=== PATIENT | female | born 1970 | race Caucasian/White ===

== ENCOUNTER 2016-10-05 09:11 | Day surgery (SDC) | payer MEDICAID ==
[~2016-10-05 09:11] MED LIST: Bupivacaine 0.5% 50 ML MDV ONE; Lidocaine 1% with EPINEPHrine 1:100,000 50 ML MDV ONE
[2016-10-05] MEDS ORDERED: Propofol 200 MG/20 ML SDV ONE ×3 (09:15→11:10)
[2016-10-05] MEDS ORDERED: Midazolam 1 MG/ML 2 ML SDV ONE (09:15)
[2016-10-05] MEDS ORDERED: fentaNYL 100 MCG/2 ML SDV ONE (09:15)
[2016-10-05] MEDS ORDERED: Lactated Ringers 1,000 ML IV SCH (10:30)
[2016-10-05] MEDS ORDERED: Acetaminophen/HYDROcodone 325-5 MG Tab PO ONE (12:00)
[2016-10-05 12:45] VITALS: BP 105/66
--- NOTE | 2016-10-08 08:35 | OR ---
DATE OF PROCEDURE: 10/05/2016 PREOPERATIVE DIAGNOSES: Family history of colon cancer of both paternal grandparents. Small external hemorrhoid. Small lesion, left buttock. POSTOPERATIVE DIAGNOSES: Three colon polyps. Small external hemorrhoids. Small lesion, left buttock, consistent with epidermal inclusion cyst. Inflamed ileocecal valve. PROCEDURE: Colonoscopy to the cecum with biopsy resection of 3 colon polyps, 2 at 25 cm were sent to the laboratory as one specimen, biopsy of ileocecal valve. ANESTHESIA: IV anesthesia with monitored anesthesia care. INDICATIONS: This 46-year-old white female is referred for a colonoscopy because of a family history of colon cancer. She says both her paternal grandparents had colon cancer. She says her last colonoscopic exam was done about ten years ago. Additionally, she has a small hemorrhoid which is external and she would like to have this excised as well as a skin lesion in the left buttock which is just outside the anal area. She also has a personal history of clear cell renal cell carcinoma having undergone a nephrectomy on the right side. I counseled her for a colonoscopy with possible biopsy and/or polypectomy as well as excision of her external hemorrhoid and the skin lesion on the left buttock including risks and alternatives and she gave her informed consent to proceed. PROCEDURE IN DETAIL: The patient was placed in the left lateral decubitus position. IV anesthesia was administered by the Anesthesia Service. Time-out was held. A rectal exam was performed, which was unremarkable other than the small external hemorrhoid and the skin lesion in the left buttock adjacent to the anus. The flexible video Olympus colonoscope was introduced through her anus, up her rectum, and out her colon all way to the cecum. En route, at 15 cm from the anal verge, we encountered a polyp which was fairly small and was removed with the biopsy forceps. Once the cecum was reached, the scope was slowly withdrawn examining the mucosa throughout. The ileocecal valve appeared inflamed. We obtained biopsies of this. The scope was then withdrawn with no other lesions noted until we reached 25 cm from anal verge. Here, we saw two small polyps adjacent to each other which were removed with the biopsy forceps and since they were adjacent to each other, they were sent to the laboratory as one specimen. The scope was brought back into the rectum, where it was retroflexed, the distal rectum appeared unremarkable. The scope was straightened and removed. She tolerated this portion of the procedure well. She was then placed in the jackknife position. Perianal and buttock areas were prepped and draped in the usual sterile fashion. Lidocaine 1% with epinephrine in a 50:50 mix with 0.5% Marcaine was infiltrated about the 5 mm skin lesion adjacent to the anus on the left and the small external hemorrhoid. The skin lesion was then excised using a radial elliptical incision and was found to be consistent with an epidermal inclusion cyst. It was sent to pathology. The incision was closed with a running stitch of 3-0 chromic. Next, the small hemorrhoid was grasped and elevated. It was excised with electrocautery and sent to the laboratory. Now, all looked well. Sterile dressing was applied. The patient was placed in supine and brought from the operating room in good condition having tolerated the procedure well. Erick Delgadillo MD /[id number] [id number]
== END 2016-10-05 13:15 | disposition home or self-care (01) ==
LOC: JP.SDS 09:11
PROVIDERS: ATTEND Surgery
PROC: 0DBE8ZX Excision of Large Intestine, Via Natural or Artificial Opening Endoscopic, Diagnostic (ICD-10-PCS; principal; 2016-10-05)
PROC: 0HB8XZZ Excision of Buttock Skin, External Approach (ICD-10-PCS; 2016-10-05)
PROC: 06BY3ZC Excision of Hemorrhoidal Plexus, Percutaneous Approach (ICD-10-PCS; 2016-10-05)
DX: Z12.11 Encounter for screening for malignant neoplasm of colon (principal); D12.6 Benign neoplasm of colon, unspecified; K63.5 Polyp of colon; L72.0 Epidermal cyst; D23.5 Other benign neoplasm of skin of trunk; Z88.0 Allergy status to penicillin
CPT/HCPCS: 11400; 45380; 46999; A9270; J2250; J2704; J3010; J7120; 88304; 88305

== ENCOUNTER 2017-01-18 06:03 | Inpatient (IN) | payer MEDICAID ==
[2017-01-18] MEDS ORDERED: Dextrose 5%-Lactated Ringers 1,000 ML IV SCH (06:30)
[2017-01-18] MEDS: fentaNYL 25 MCG/HR Transdermal Patch TRDERM SCH (06:47)
[2017-01-18] MEDS ORDERED: cefOXitin 2 GM Vial ONE (06:58)
[2017-01-18] MEDS ORDERED: Bupivacaine 0.5%/EPINEPHrine 1:200,000 50 ML MDV ONE (06:58)
[2017-01-18] MEDS ORDERED: Propofol 200 MG/20 ML SDV ONE (07:15)
[2017-01-18] MEDS ORDERED: Dexamethasone 4 MG/ML SDV ONE (07:15)
[2017-01-18] MEDS ORDERED: fentaNYL 250 MCG/5 ML SDV ONE ×2 (07:15→08:28)
[2017-01-18] MEDS ORDERED: Neostigmine Methylsulfate 1 MG/ML 5 ML Syringe ONE (07:15)
[2017-01-18] MEDS ORDERED: Succinylcholine/Normal Saline 200 MG/10 ML Syringe ONE (07:15)
[2017-01-18] MEDS ORDERED: Rocuronium 50 MG/5 ML Vial ONE (07:15)
[2017-01-18] MEDS ORDERED: Ondansetron 4 MG/2 ML SDV ONE (07:15)
[2017-01-18] MEDS ORDERED: Meropenem 500 MG SDV ONE (07:33)
[2017-01-18] MEDS ORDERED: Naloxone 0.4 MG/ML SDV IVPUSH PRN (07:37)
[2017-01-18] MEDS ORDERED: Scopolamine 1.5 MG Transdermal Patch TRDERM PRN (07:42)
[2017-01-18] MEDS ORDERED: ceFAZolin 2 GM in Premix Bag 1 BAG IV ONE (07:45)
[2017-01-18] MEDS: HYDROmorphone/Normal Saline 15 MG/30 ML PCA IV PRN (07:46)
[2017-01-18] MEDS ORDERED: Linezolid 200 MG/100 ML Bag IV ONE (08:41)
[2017-01-18] MEDS ORDERED: FENTANYL PATCH CHECK TOP SCH (09:00)
[2017-01-18] MEDS ORDERED: Lactated Ringers 1,000 ML ONE (09:30)
[2017-01-18] MEDS ORDERED: Ondansetron 4 MG/2 ML SDV IVPUSH PRN (11:46)
[2017-01-18] MEDS ORDERED: hydrOXYzine HCl 25 MG Tab PO PRN (11:47)
[2017-01-18] MEDS ORDERED: Cyclobenzaprine 10 MG Tab PO PRN (11:47)
[2017-01-18] MEDS ORDERED: hydrOXYzine HCl 50 MG/ML SDV IM PRN (11:48)
[2017-01-18] MEDS: FENTANYL PATCH CHECK TOP SCH ×2 (13:16→21:12)
[2017-01-18] MEDS: Dextrose 5%-Lactated Ringers 1,000 ML IV SCH ×2 (13:21→20:26)
[2017-01-18] MEDS: ClonazePAM 1 MG Tab PO PRN (14:13)
[2017-01-18] MEDS: ceFAZolin 2 GM in Sodium Chloride 0.9% 50 ML IV SCH ×2 (14:14→21:11)
[2017-01-18] MEDS: FLUoxetine 10 MG Cap PO SCH (14:31)
[2017-01-18] MEDS: Fluticasone Propionate Nasal Spray 16 GM Bottle NASBOTH SCH (21:11)
[2017-01-19] MEDS: HYDROmorphone/Normal Saline 15 MG/30 ML PCA IV PRN (00:50)
[2017-01-19] MEDS: ClonazePAM 1 MG Tab PO PRN ×2 (01:03→20:09)
[2017-01-19] MEDS: Dextrose 5%-Lactated Ringers 1,000 ML IV SCH ×2 (03:40→16:33)
[2017-01-19] MEDS: ceFAZolin 2 GM in Sodium Chloride 0.9% 50 ML IV SCH (05:14)
[2017-01-19] MEDS: FENTANYL PATCH CHECK TOP SCH ×2 (08:16→21:03)
[2017-01-19] MEDS: Fluticasone Propionate Nasal Spray 16 GM Bottle NASBOTH SCH ×3 (08:16→21:03)
[2017-01-19] MEDS: FLUoxetine 10 MG Cap PO SCH (08:17)
[2017-01-19] MEDS: Bisacodyl 5 MG Tab PO SCH ×2 (10:39→21:02)
[2017-01-19] MEDS: Docusate Sodium 100 MG Cap PO SCH ×2 (10:39→21:02)
[2017-01-19] MEDS ORDERED: Tamsulosin 0.4 MG Cap.ER PO ONE (14:45)
[2017-01-19] MEDS: Acetaminophen/oxyCODONE 325-5 MG Tab PO PRN ×2 (15:33→20:08)
[2017-01-19] MEDS: Tamsulosin 0.4 MG Cap.ER PO SCH (21:02)
[2017-01-20] MEDS: Acetaminophen/oxyCODONE 325-5 MG Tab PO PRN ×3 (00:07→10:01)
[2017-01-20] MEDS: ClonazePAM 1 MG Tab PO PRN (00:19)
[2017-01-20] MEDS: Dextrose 5%-Lactated Ringers 1,000 ML IV SCH (02:38)
[2017-01-20 07:14] VITALS: BP 92/55
[2017-01-20] MEDS: FLUoxetine 10 MG Cap PO SCH (08:01)
[2017-01-20] MEDS: Tamsulosin 0.4 MG Cap.ER PO SCH (08:01)
[2017-01-20] MEDS: Docusate Sodium 100 MG Cap PO SCH (08:02)
[2017-01-20] MEDS: Bisacodyl 5 MG Tab PO SCH (08:02)
[2017-01-20] MEDS: Fluticasone Propionate Nasal Spray 16 GM Bottle NASBOTH SCH (08:02)
[2017-01-20] MEDS: FENTANYL PATCH CHECK TOP SCH (08:03)
[2017-01-20] MEDS: fentaNYL 25 MCG/HR Transdermal Patch TRDERM SCH (09:51)
--- NOTE | 2017-01-21 11:31 | DISCH ---
ADMISSION DIAGNOSES: 1. Incarcerated umbilical and incisional hernias. 2. Depression disorder. 3. Anxiety disorder. DISCHARGE DIAGNOSES: Laparoscopic repair of incarcerated umbilical hernia and incarcerated incisional hernia. DATE OF SURGERY: 01/18/2017. HISTORY: Delmi Mo is a 46-year-old female with incarcerated umbilical and incarcerated incisional hernias. After preoperative evaluation and discussion of possible risks and possible complications, she wished to proceed with surgical procedure. HOSPITAL COURSE: Delmi had her surgery on 01/18/2017. She had no operative complications. On postoperative day 1, she was advanced to a diet, and her activity was good. On postoperative day 2, she was changed to oral pain medication. Her diet was advanced. She did have difficulty with urinating with a residual of 800/800 in her bladder, and her Louis was re-inserted and started on Flomax. Louis catheter was taken out on day of discharge. She urinated. Pain was controlled. Activity was good. Vital signs were stable. She was able to be discharged to home. PHYSICAL EXAMINATION: GENERAL: Delmi mo is a pleasant 46-year-old female. VITAL SIGNS: Height is 5 feet 3 inches and weight is 110 pounds. TPR is 97.5, 92, and 18. Blood pressure is 92/55. HEENT: Negative. NECK: Supple. HEART: Regular rate and rhythm. LUNGS: Clear. ABDOMEN: Incisions look good. Abdominal binder is on. EXTREMITIES: Without peripheral edema. DISPOSITION: Discharged to home. CONDITION: Stable and improving. FOLLOWUP APPOINTMENT: With Isabel Perea PA-C, on 01/30/2017 at 9 a.m. HOME MEDICATIONS: 1. Percocet 5/325 mg one to two every 4 hours p.r.n. pain. 2. Colace 100 mg oral twice daily, #100. 3. Milk of magnesia 30 mL, two were sent home with patient to take one today and repeat in a.m. 4. Flomax 0.4 mg oral daily, #30. 5. Fentanyl patch was replaced. She is to take today and she is to take it off on , 01/24/2017. DISCHARGE MEDICATIONS: To resume home medications of 1. Prozac. 2. Fluoxetine 10 mg daily. 3. Flonase 1 spray in each nostril twice daily. 4. Multivitamin one tablet oral daily. 5. Clonazepam 1 mg oral twice daily p.r.n. anxiety. DIET AFTER DISCHARGE: Usual diet as tolerated. Drink 8 to 10 glasses a day. ACTIVITY: After discharge, no lifting greater than 10 pounds for six weeks. Other activity, walk 8 times daily, distance and time as tolerated. DISCHARGE INSTRUCTIONS: Driving after discharge, do not drive on pain medication. She may shower. Notify provider if any fever, increased pain, nausea, or vomiting. Wound incision care, keep site clean and dry. Wear abdominal binder with rolled up Kerlix or washcloth over the hernia site for six weeks. Use incentive spirometer 10 times every hour while awake for two weeks.
--- NOTE | 2017-01-21 11:40 | PN ---
DATE OF SERVICE: 01/19/2017 The patient has been afebrile with stable vital signs. Pain control appears to be satisfactory. We will switch over to oral pain medication today and then go up to a regular diet. We will start some Colace and Dulcolax oral tablets scheduled today to augment bowel activity. She probably will be ready for discharge home tomorrow. She's somebody who should keep pressure over the hernia site, which includes the umbilicus, and essentially the entire upper midline incision with an amount of gauze or washcloth and binder for at least 3 weeks postoperatively. Andriy Santiago MD /[id number]
--- NOTE | 2017-01-23 14:32 | OR ---
DATE OF PROCEDURE: 01/18/2017 PREOPERATIVE DIAGNOSIS: Umbilical hernia. POSTOPERATIVE DIAGNOSES: 1. Incarcerated umbilical hernia. 2. Incarcerated incisional hernia. OPERATIVE PROCEDURES: Diagnostic laparoscopy with: 1. Repair of incarcerated umbilical hernia with mesh ([id number]). 2. Repair of incarcerated incisional hernia with mesh ([id number]). ANESTHESIA: General. JOB CHECKER: 1. Isabel Perea PA-C. 2. JESUS Langley student. INDICATION FOR PROCEDURE: A 46-year-old status post an upper midline incision used for radical nephrectomy presenting with hernias involving the umbilical area. There is also some probable component of an incisional hernia extending superiorly. Plan is to proceed with diagnostic laparoscopy, laparotomy if necessary, and repair of the hernia with mesh. Potential risk including bleeding, infection, injury to the underlying viscera as well as possibility of mesh becoming infected, hernia recurring, and lastly possibility of cardiopulmonary, septic, or hemorrhagic complications leading to were discussed, and the patient wishes to proceed. DETAILS OF THE PROCEDURE: The patient was taken to the operating room and after general endotracheal anesthesia was induced, a Louis catheter was inserted and the abdomen was prepped and draped. Beginning on the right side, a transverse incision was made and the peritoneal cavity was entered under a direct vision with an Optiview trocar and inflated 15 mmHg pressure with CO2. Laparoscope was then reinserted. There was no evidence for adhesions in this area. At that point, next, a trocar was then placed. This also with the Optiview trocar in the left lower quadrant. This was entered in the peritoneal cavity in a free plane and at that point, over time additional 5 more trocars were then placed. The adhesions were then taken down. The patient was noted to have a significant component of the umbilical hernia with adherent omentum within it highly incarcerated. The patient had also had an incisional hernia which extended roughly 2/3rd from the umbilicus to the midline toward the xiphoid. This likewise had incarcerated omentum as well as loop of small bowel within it. These were all reduced with combination of blunt and Harmonic scalpel dissection. Eventually, the satisfactory reduction of the hernias were noted. The area was then mapped out, and a decision was made to proceed with a 23 x [address] mesh with the balloon positioning system. The sutures were then placed on the ends of the mesh on the polypropylene side in the long axis and the skin marin were made where the suture as well as the balloon catheter would be pulled up. The mesh was then soaked in antibiotic-containing saline solution and placed in intraperitoneal location. It was then oriented such as sutures were pulled up and the polypropylene side faced the abdominal wall. The balloon was then inflated thus pushing the mesh up against the abdominal wall satisfactorily and the mesh was then affixed with two circumferential rows of absorbable tacking screws. The balloon was then deflated and withdrawn. The mesh was then inspected once again and found to be well fixed and with good margins away from the fascial defect in all areas. At this point, no further problems were noted. The fascia at the 12 mm sites was closed with 0 Vicryl stitch and the skin with 6-0 Vicryl skin stitch and dressing was applied. The patient was taken to the recovery room in a satisfactory condition. There were no evident complications. Physician document control assistant, Isabel Perea played an essential role in assisting in this case, helping to position the patient, cut sutures as indicated as well as suturing and retracting structures as indicated. Her presence improved the patient's safety and decreased operative time. Andriy Santiago MD /[id number]
== END 2017-01-20 10:14 | disposition home or self-care (01) | DRG 355 ==
LOC: JP.SDSSCHI 06:03 → JP.SDS 06:03 → EDSTATUS 09:15 → JP.2SS 10:15
PROVIDERS: ADMIT Surgery; ATTEND Surgery
PROC: 0WUF4JZ Supplement Abdominal Wall with Synthetic Substitute, Percutaneous Endoscopic Approach (ICD-10-PCS; principal; 2017-01-18)
DX: K42.0 Umbilical hernia with obstruction, without gangrene (principal); K43.0 Incisional hernia with obstruction, without gangrene; F41.9 Anxiety disorder, unspecified; F32.9 Major depressive disorder, single episode, unspecified; Z72.0 Tobacco use; Z85.528 Personal history of other malignant neoplasm of kidney; Z90.5 Acquired absence of kidney; Z88.0 Allergy status to penicillin
CPT/HCPCS: 51798; 94762; A9270-GY; C1781; J0131; J0690; J0694; J1100; J1170; J2020; J2185; J2405; J2704; J3010; J7042; J7050; J7120

== ENCOUNTER 2017-01-24 10:48 | Emergency (ER) | payer MEDICAID ==
--- NOTE | 2017-01-24 15:52 | EDM.PDOC ---
ED HPI GENERAL MEDICAL PROBLEM - General Chief Complaint: General Stated Complaint: HERNIA SURGERY COMPLICATIONS Time Seen by Provider: 01/24/17 15:47 Source of Information: Reports: Patient, Family History Limitations: Reports: No Limitations - History of Present Illness INITIAL COMMENTS - FREE TEXT/NARRATIVE: had umbilcal hernia repair 6 days ago. Initially felt well but over past few days with increased malaise. having some chest tightness, hard to stand up straight. Having minimal abdominal pain, eating okay, passing stool. No fevers, chills. Denies cough. Having some leg pain and swelling at times. No hx blood clots in past Onset: Gradual Onset Date: 01/22/17 Location: Reports: Generalized Quality: Reports: Dull Severity: Mild Improves with: Reports: None Worsens with: Reports: Movement Associated Symptoms: Reports: Chest Pain, Malaise, Weakness. Denies: Nausea/ Vomiting, Shortness of Breath - Related Data Allergies Allergy/AdvReac Type Severity Reaction Status Date / Time penicillin G Allergy Hives Verified 01/18/17 06:16 Home Meds: Home Meds clonazePAM [Clonazepam] 1 mg PO BID PRN 08/19/15 [History] FLUoxetine [PROzac] 10 mg PO DAILY 07/06/16 [History] Fluticasone Propionate [Flonase] 1 spray INH BID PRN 01/16/17 [History] Acetaminophen/oxyCODONE [Percocet 325-5 MG] 1 - 2 tab PO Q4H PRN #50 tablet 06/28 [Rx] Past Medical History HEENT History: Reports: Impaired Vision, Sinusitis Cardiovascular History: Reports: Heart Murmur Respiratory History: Reports: Bronchitis, Recurrent Other Respiratory History: Hx of pleursey Gastrointestinal History: Reports: Colon Polyp, Hemorrhoids Genitourinary History: Reports: None 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 History: Reports: Endometriosis, , Spontaneous Musculoskeletal History: Reports: Back Pain, Chronic Neurological History: Reports: Headaches, Chronic Psychiatric History: Reports: Anxiety, Depression, Psych Hospitalization(s) Oncologic (Cancer) History: Reports: Renal - Infectious Disease History Infectious Disease History: Reports: Chicken Pox, Measles - Past Surgical History HEENT Surgical History: Reports: Naso-Sinus Surgery GI Surgical History: Reports: Colonoscopy, Hernia Repair/Other Female Surgical History: Reports: Section, Hysterectomy, Nephrectomy , Tubal Ligation Oncologic Surgical History: Reports: Other (See Below) Other Oncologic Surgeries/Procedures: nephrectomy Social & Family History - Family History Family Medical History: Noncontributory HEENT: Reports: Glaucoma, Hearing Impairment, Impaired Vision Cardiac: Reports: High Cholesterol Respiratory: Reports: Sleep Apnea : Reports: Renal Calculus OBGYN: Reports: Endometriosis Musculoskeletal: Reports: Fibromyalgia Neurological: Reports: Dementia Oncologic: Reports: Colon, Prostate - Tobacco Use Smoking Status *Q: Current Every Day Smoker Years of Tobacco use: 30 Packs/Tins Daily: 1 Used Tobacco, but Quit: No Second Hand Smoke Exposure: No - Caffeine Use Caffeine Use: Reports: Soda - Alcohol Use Days Per Week of Alcohol Use: 0 - Recreational Drug Use Recreational Drug Use: No ED ROS GENERAL - Review of Systems Review Of Systems: See Below Constitutional: Reports: Malaise, Weakness, Fatigue, Decreased Appetite. Denies : Fever HEENT: Reports: No Symptoms Respiratory: Reports: Cough. Denies: Shortness of Breath, Pleuritic Chest Pain Cardiovascular: Reports: Chest Pain. Denies: Dyspnea on Exertion, Edema, Lightheadedness Endocrine: Reports: No Symptoms GI/Abdominal: Reports: No Symptoms : Reports: No Symptoms Musculoskeletal: Reports: Leg Pain Skin: Reports: No Symptoms Neurological: Reports: No Symptoms Psychiatric: Reports: No Symptoms Hematologic/Lymphatic: Reports: No Symptoms Immunologic: Reports: No Symptoms ED EXAM, GENERAL - Physical Exam Exam: See Below Exam Limited By: No Limitations General Appearance: Alert, No Apparent Distress Ears: Normal External Exam, Normal TMs Nose: Normal Inspection Throat/Mouth: Normal Inspection, Normal Oropharynx Head: Atraumatic, Normocephalic Neck: Normal Inspection, Supple Respiratory/Chest: No Respiratory Distress, Lungs Clear, No Accessory Muscle Use Cardiovascular: Normal Peripheral Pulses, Regular Rate, Rhythm, No Edema GI/Abdominal: Normal Bowel Sounds, Soft, Non-Tender, No Distention Back Exam: Normal Inspection Extremities: Normal Inspection, No Pedal Edema. No: Adriano's Sign, Increased Warmth Neurological: Alert, Oriented Psychiatric: Normal Affect Skin Exam: Warm, Dry Lymphatic: No Adenopathy Course - Vital Signs Last Recorded V/S: Last Vital Signs Temp 36.4 C 01/24/17 11:11 Pulse 74 01/24/17 18:18 Resp 18 01/24/17 18:18 BP 114/66 01/24/17 18:18 Pulse Ox 97 01/24/17 18:18 - Orders/Labs/Meds Orders: Active Orders 24 hr Category Date Time Status Cardiac Monitoring [RC] .As Directed Care 01/24/17 15:19 Active Ang Chest [CT] Stat Exams 01/24/17 16:37 Taken Chest 1V Frontal [CR] Stat Exams 01/24/17 15:19 Taken Iopamidol [Isovue-370 (76%)] Med 01/24/17 17:00 Active 100 ml IV . DIRECTED Sodium Chloride 0.9% [Normal Saline] 80 ml Med 01/24/17 17:00 Active IV ASDIRECTED Sodium Chloride 0.9% [Saline Flush] Med 01/24/17 17:00 Active 10 ml FLUSH ASDIRECTED PRN Medication Orders Sodium Chloride (Normal Saline) 80 mls @ 3 mls/sec IV ASDIRECTED VERNA Last Admin: 01/24/17 17:18 Dose: 3 mls/sec Iopamidol (Isovue-370 (76%)) 100 ml IV . DIRECTED VERNA Last Admin: 01/24/17 17:18 Dose: 100 ml Sodium Chloride (Saline Flush) 10 ml FLUSH ASDIRECTED PRN PRN Reason: Keep Vein Open Last Admin: 01/24/17 17:13 Dose: 10 ml Labs: Laboratory Tests 01/24/17 01/24/17 01/24/17 Range/Units 15:20 15:20 15:20 WBC 8.9 (4.5-11.0) K/uL RBC 4.62 (3.30-5.50) M/uL Hgb 14.4 (12.0-15.0) g/dL Hct 42.6 (36.0-48.0) % MCV 92 (80-98) fL MCH 31 (27-31) pg MCHC 34 (32-36) % Plt Count 242 (150-400) K/uL Neut % (Auto) 63 (36-66) % Lymph % (Auto) 23 L (24-44) % Mckenzie % (Auto) 7 H (2-6) % Eos % (Auto) 6 H (2-4) % Baso % (Auto) 1 (0-1) % D-Dimer, Quantitative 1090 H (0.0-400.0) ng/mL Sodium 140 (140-148) mmol/L Potassium 4.3 (3.6-5.2) mmol/L Chloride 105 (100-108) mmol/L Carbon Dioxide 26 (21-32) mmol/L Anion Gap 9.3 (5.0-14.0) mmol/L BUN 10 (7-18) mg/dL Creatinine 1.0 (0.6-1.0) mg/dL Est Cr Clr Drug Dosing 57.57 mL/min Estimated GFR (MDRD) > 60 (>60) Glucose 90 (74-106) mg/dL Calcium 8.9 (8.5-10.1) mg/dL Meds: Medications Generic Name Dose Route Start Last Admin Trade Name Freq PRN Reason Stop Dose Admin Sodium Chloride 80 mls @ 3 mls/sec 01/24/17 17:00 01/24/17 17:18 Normal Saline IV 3 mls/sec ASDIRECTED VERNA Administration Iopamidol 100 ml 01/24/17 17:00 01/24/17 17:18 Isovue-370 (76%) IV 100 ml . DIRECTED VERNA Administration Sodium Chloride 10 ml 01/24/17 17:00 01/24/17 17:13 Saline Flush FLUSH 10 ml ASDIRECTED PRN Administration Keep Vein Open - Re-Assessments/Exams Free Text/Narrative Re-Assessment/Exam: 01/24/17 18:45 D-dimer was elevated, Pulmonary CT was negative for PE Departure - Departure Time of Disposition: 18:50 Disposition: Home, Self-Care 01 Condition: Fair Clinical Impression: Malaise and fatigue - Discharge Information Forms: ED Department Discharge - Problem List & Annotations (1) Malaise and fatigue SNOMED Code(s): 156464918 Code(s): R53.81 - OTHER MALAISE; R53.83 - OTHER FATIGUE Status: Acute Current Visit: Yes - Problem List Review Problem List Initiated/Reviewed/Updated: Yes - My Orders Last 24 Hours: My Active Orders 01/24/17 15:19 Cardiac Monitoring [RC] .As Directed Chest 1V Frontal [CR] Stat 01/24/17 16:37 Ang Chest [CT] Stat 01/24/17 17:00 Iopamidol [Isovue-370 (76%)] 100 ml IV . DIRECTED Sodium Chloride 0.9% [Normal Saline] 80 ml IV ASDIRECTED Sodium Chloride 0.9% [Saline Flush] 10 ml FLUSH ASDIRECTED PRN - Assessment/Plan Last 24 Hours: My Active Orders 01/24/17 15:19 Cardiac Monitoring [RC] .As Directed Chest 1V Frontal [CR] Stat 01/24/17 16:37 Ang Chest [CT] Stat 01/24/17 17:00 Iopamidol [Isovue-370 (76%)] 100 ml IV . DIRECTED Sodium Chloride 0.9% [Normal Saline] 80 ml IV ASDIRECTED Sodium Chloride 0.9% [Saline Flush] 10 ml FLUSH ASDIRECTED PRN Assessment:: 46 year old with hx of surgery last week for umbilcal hernia. presents with fatigue, stopped her fentanyl patch and oxycodone for fear of side effects. No N /V, no belly pain, passing stool. Labwork done and normal with only abnormality of elevated d-dimer. Pulmonary CT neg At this time no clear cause for her malaise, although concern that could be related to her pain meds Plan: Asking to go home. Will go home, work on good diet. She has an appointment next week with her PMD
[2017-01-24] MEDS ORDERED: Sodium Chloride 0.9% 10 ML Syringe FLUSH PRN (17:00)
[2017-01-24] MEDS ORDERED: Iopamidol 755 Mg/ML 100 ML Bottle IV SCH (17:00)
[2017-01-24] MEDS ORDERED: Sodium Chloride 0.9% 80 ML IV SCH (17:00)
[2017-01-24 18:18] VITALS: BP 114/66
--- NOTE | 2017-01-25 09:06 | CR ---
Chest 1V Frontal INDICATION: Chest Pain FINDINGS: Negative chest.
== END 2017-01-24 19:07 | disposition home or self-care (01) ==
LOC: JP.ED 10:48
DX: R53.81 Other malaise (principal); R53.83 Other fatigue; F32.9 Major depressive disorder, single episode, unspecified; F41.9 Anxiety disorder, unspecified; F17.210 Nicotine dependence, cigarettes, uncomplicated; Z90.710 Acquired absence of both cervix and uterus; Z98.51 Tubal ligation status; Z98.890 Other specified postprocedural states; Z79.899 Other long term (current) drug therapy; Z88.0 Allergy status to penicillin
CPT/HCPCS: 36415; 71010; 71275; 80048; 85025; 85379; 96360; 96361; 99284; J7030; J7050; Q9967

== ENCOUNTER 2019-09-21 07:27 | Day surgery (SDC) | payer MEDICAID ==
[2019-09-21] MEDS ORDERED: Propofol 200 MG/20 ML SDV ONE (07:36)
[2019-09-21] MEDS ORDERED: fentaNYL 100 MCG/2 ML SDV ONE (07:37)
[2019-09-21] MEDS ORDERED: Midazolam 1 MG/ML 2 ML SDV ONE (07:37)
[2019-09-21] MEDS ORDERED: Sodium Chloride 0.9% 1,000 ML IV SCH (07:45)
[2019-09-21] MEDS ORDERED: Dexamethasone 4 MG/ML SDV ONE (08:46)
[2019-09-21] MEDS ORDERED: Ondansetron 4 MG/2 ML SDV ONE (08:46)
[2019-09-21 10:14] VITALS: BP 102/70; PULSE 72
--- NOTE | 2019-09-22 09:27 | PROC ---
DATE OF PROCEDURE: 09/21/2019 SURGEON: Mukul Stern MD PROCEDURE: Colonoscopy. PREPROCEDURE DIAGNOSIS: History of colon polyps. POSTPROCEDURE DIAGNOSIS: 1. History of colon polyps. 2. Normal colonoscopy. DESCRIPTION OF PROCEDURE: Risks and goals of procedure were reviewed with the patient, and she gave informed consent to proceed. She was brought back to the endoscopy room. Sedation monitoring provided by Ree Butch from Anesthesia Service. Time-out was held prior to the procedure to confirm right patient, right side, right procedure, and identify any potential risks. After adequate sedation, she was placed in a left lateral decubitus position. Digital rectal examination was performed, which was unremarkable. Following this, a flexible colonoscope was placed and advanced out through the colon to the cecum without significant difficulty. Scope was then slowly withdrawn back to the length of the colon. There were no significant mucosal polyps, masses, or lesions seen and the procedure was otherwise completed without complication. She will be monitored in PAR in outpatient area until fully recovered from IV sedation and then discharged home. Mukul Stern MD /[id number]
== END 2019-09-21 10:10 | disposition home or self-care (01) ==
LOC: JP.SDS 07:27
PROVIDERS: ATTEND Hospitalist
DX: Z12.11 Encounter for screening for malignant neoplasm of colon (principal); Z86.010 Personal history of colon polyps; Z88.0 Allergy status to penicillin
CPT/HCPCS: 45378; J1100; J2250; J2405; J2704; J3010; J7030

== ENCOUNTER 2021-09-12 17:36 | Emergency (ER) | payer MEDICAID ==
[2021-09-12] MEDS ORDERED: Sodium Chloride 0.9% 75 ML IV SCH (19:15)
[2021-09-12] MEDS ORDERED: Iopamidol 612 MG/ML 100 ML Bottle IV SCH (19:15)
[2021-09-12] MEDS: Folic Acid 1 MG Tab PO ONE (19:45)
[2021-09-12 19:46] VITALS: BP 120/71; PULSE 74
[2021-09-12] MEDS: Sodium Chloride 0.9% 500 ML IV ONE (19:46)
== END 2021-09-12 20:35 | disposition home or self-care (01) ==
LOC: JP.ED 17:36
DX: D52.9 Folate deficiency anemia, unspecified (principal); R53.81 Other malaise; R41.89 Other symptoms and signs involving cognitive functions and awareness; Z72.0 Tobacco use; Z88.0 Allergy status to penicillin
CPT/HCPCS: 36415; 70450; 80048; 80076; 81001; 82140; 82607; 82746; 84443; 85025; 86140; 99285-25; A9270-GY; J7040

== ENCOUNTER 2021-12-15 07:15 | Inpatient (IN) | payer MEDICAID ==
[2021-12-21] MEDS ORDERED: Lidocaine 1% with EPINEPHrine 1:100,000 50 ML MDV ONE (06:55)
[2021-12-21] MEDS ORDERED: Bupivacaine 0.5% 50 ML MDV ONE (06:55)
[2021-12-21] MEDS ORDERED: Meropenem 500 MG SDV ONE (06:56)
[2021-12-21] MEDS ORDERED: Acetaminophen 500 MG Tab PO ONE (07:30)
[2021-12-21] MEDS ORDERED: fentaNYL 250 MCG/5 ML SDV ONE ×2 (07:41→10:29)
[2021-12-21] MEDS ORDERED: Neostigmine Methylsulfate 1 MG/ML 5 ML Syringe ONE (07:42)
[2021-12-21] MEDS ORDERED: Dexamethasone 4 MG/ML SDV ONE (07:42)
[2021-12-21] MEDS ORDERED: Rocuronium 50 MG/5 ML Vial ONE (07:42)
[2021-12-21] MEDS ORDERED: Ondansetron 4 MG/2 ML SDV ONE (07:42)
[2021-12-21] MEDS ORDERED: Propofol 200 MG/20 ML SDV ONE (07:42)
[2021-12-21] MEDS ORDERED: Succinylcholine 200 MG/10 ML MDV ONE (07:42)
[2021-12-21] MEDS ORDERED: Glycopyrrolate 0.2 MG/ML 5 ML MDV ONE (07:42)
[2021-12-21] MEDS ORDERED: Dextrose 5%-Lactated Ringers 1,000 ML IV SCH (08:30)
[2021-12-21] MEDS ORDERED: Scopolamine 1.5 MG Transdermal Patch TOP SCH (09:00)
[2021-12-21] MEDS ORDERED: Ketamine 500 MG/5 ML MDV IV SCH (09:15)
[2021-12-21] MEDS ORDERED: Ketamine 15 MG in Sodium Chloride 0.9% 19.85 ML IV SCH (09:15)
[2021-12-21] MEDS ORDERED: ceFAZolin 2 GM in Premix Bag 1 BAG IV ONE (09:30)
[2021-12-21] MEDS ORDERED: diphenhydrAMINE 50 MG/ML SDV IVPUSH PRN ×2 (11:06→14:00)
[2021-12-21] MEDS ORDERED: diphenhydrAMINE 25 MG Cap PO PRN (11:06)
[2021-12-21] MEDS ORDERED: Naloxone 0.4 MG/ML SDV IVPUSH PRN (11:06)
[2021-12-21] MEDS ORDERED: Ondansetron 4 MG/2 ML SDV IVPUSH PRN ×2 (11:06→14:00)
[2021-12-21] MEDS: HYDROmorphone/Normal Saline 6 MG/30 ML PCA Vial IV PRN ×3 (11:38→21:25)
[2021-12-21] MEDS ORDERED: Labetalol 20 MG/4 ML Syringe IVPUSH PRN (14:00)
[2021-12-21] MEDS ORDERED: Metoclopramide 10 MG/2 ML SDV IVPUSH PRN (14:00)
[2021-12-21] MEDS: Dextrose 5%-Lactated Ringers 1,000 ML IV SCH ×2 (14:00→23:38)
[2021-12-21] MEDS ORDERED: hydrOXYzine HCL 100 MG/2 ML SDV IM PRN (14:00)
[2021-12-21] MEDS ORDERED: Acetaminophen 500 MG Tab PO PRN (14:00)
[2021-12-21] MEDS: Acetaminophen 500 MG Tab PO SCH ×2 (14:47→21:20)
[2021-12-21] MEDS: Nicotine 14 MG/24 Hr Patch TRDERM SCH (14:47)
[2021-12-21] MEDS: Pantoprazole 40 MG Vial IVPUSH SCH (14:47)
[2021-12-21] MEDS: Cyclobenzaprine 10 MG Tab PO PRN (14:49)
[2021-12-21] MEDS: ceFAZolin 2 GM in Premix Bag 1 BAG IV SCH (17:14)
[2021-12-21] MEDS: MVI, Adult with Vitamin K 10 ML, Thiamine 200 MG, Zinc/Copper/Manganese/Selenium 1 ML i... IV SCH ×4 (17:14)
[2021-12-21] MEDS: ClonazePAM 0.5 MG Tab PO SCH (21:27)
[2021-12-22] MEDS: ceFAZolin 2 GM in Premix Bag 1 BAG IV SCH ×2 (00:50→08:30)
[2021-12-22] MEDS: HYDROmorphone/Normal Saline 6 MG/30 ML PCA Vial IV PRN ×3 (04:11→16:36)
[2021-12-22] MEDS: Acetaminophen 500 MG Tab PO SCH ×3 (05:39→22:50)
[2021-12-22] MEDS: Dextrose 5%-Lactated Ringers 1,000 ML IV SCH (05:42)
[2021-12-22] MEDS ORDERED: Dextrose 5%-Lactated Ringers 1,000 ML IV SCH (07:21)
[2021-12-22] MEDS: Docusate Sodium 100 MG Cap PO SCH ×2 (08:31→20:12)
[2021-12-22] MEDS: Bisacodyl 5 MG Tab PO SCH ×2 (08:31→20:12)
[2021-12-22] MEDS: Celecoxib 200 MG Cap PO SCH ×2 (08:31→20:12)
[2021-12-22] MEDS: SCOPOLAMINE PATCH CHECK TOP SCH (08:33)
[2021-12-22] MEDS: Nicotine 14 MG/24 Hr Patch TRDERM SCH (08:33)
[2021-12-22] MEDS: ClonazePAM 0.5 MG Tab PO SCH ×2 (08:40→20:12)
[2021-12-22] MEDS: Pantoprazole 40 MG Vial IVPUSH SCH (13:59)
[2021-12-22] MEDS: MVI, Adult with Vitamin K 10 ML, Thiamine 200 MG, Zinc/Copper/Manganese/Selenium 1 ML i... IV SCH ×4 (16:40)
[2021-12-22] MEDS ORDERED: oxyCODONE 5 MG Tab ONE (18:54)
[2021-12-22] MEDS: oxyCODONE 5 MG Tab PO PRN ×2 (18:56→22:50)
[2021-12-23] MEDS: Cyclobenzaprine 10 MG Tab PO PRN (01:50)
[2021-12-23] MEDS: oxyCODONE 5 MG Tab PO PRN ×6 (02:49→23:04)
[2021-12-23] MEDS: Acetaminophen 500 MG Tab PO SCH ×3 (05:37→23:04)
[2021-12-23] MEDS ORDERED: Cyanocobalamin (Vitamin B12) 1,000 MCG/ML SDV IM ONE (09:00)
[2021-12-23] MEDS: Celecoxib 200 MG Cap PO SCH ×2 (09:11→20:54)
[2021-12-23] MEDS: Bisacodyl 5 MG Tab PO SCH ×2 (09:12→20:52)
[2021-12-23] MEDS: Docusate Sodium 100 MG Cap PO SCH ×2 (09:12→20:54)
[2021-12-23] MEDS: SCOPOLAMINE PATCH CHECK TOP SCH (09:14)
[2021-12-23] MEDS: Nicotine 14 MG/24 Hr Patch TRDERM SCH (09:16)
[2021-12-23] MEDS: ClonazePAM 0.5 MG Tab PO SCH ×2 (09:21→20:57)
[2021-12-23] MEDS: Magnesium Hydroxide 400 MG/5 ML Susp 30 ML Cup PO SCH ×2 (09:59→20:52)
[2021-12-23] MEDS: Pantoprazole 40 MG Tab.CR PO SCH (15:05)
[2021-12-24] MEDS: oxyCODONE 5 MG Tab PO PRN ×3 (03:25→11:49)
[2021-12-24] MEDS: Acetaminophen 500 MG Tab PO SCH (05:54)
[2021-12-24] MEDS: Pantoprazole 40 MG Tab.CR PO SCH (07:44)
[2021-12-24 07:56] VITALS: BP 118/77; PULSE 94
[2021-12-24] MEDS: Bisacodyl 5 MG Tab PO SCH (09:54)
[2021-12-24] MEDS: Docusate Sodium 100 MG Cap PO SCH (09:54)
[2021-12-24] MEDS: ClonazePAM 0.5 MG Tab PO SCH (09:55)
[2021-12-24] MEDS: Celecoxib 200 MG Cap PO SCH (09:55)
[2021-12-24] MEDS: Nicotine 14 MG/24 Hr Patch TRDERM SCH (09:55)
== END 2021-12-24 11:45 | disposition home or self-care (01) | DRG 742 ==
LOC: EDSTATUS 12-21 07:30 → JP.SDS 12-21 07:34 → JP.ICU 12-21 11:26
PROVIDERS: ADMIT Surgery; ATTEND Surgery
PROC: 0WUF0JZ Supplement Abdominal Wall with Synthetic Substitute, Open Approach (ICD-10-PCS; principal; 2021-12-21)
PROC: 0WUF0JZ Supplement Abdominal Wall with Synthetic Substitute, Open Approach (ICD-10-PCS; 2021-12-21)
PROC: 0FB20ZZ Excision of Left Lobe Liver, Open Approach (ICD-10-PCS; 2021-12-21)
PROC: 0WPF0JZ Removal of Synthetic Substitute from Abdominal Wall, Open Approach (ICD-10-PCS; 2021-12-21)
PROC: 0UB70ZZ Excision of Bilateral Fallopian Tubes, Open Approach (ICD-10-PCS; 2021-12-21)
PROC: 0UB20ZZ Excision of Bilateral Ovaries, Open Approach (ICD-10-PCS; 2021-12-21)
PROC: 0U5B0ZZ Destruction of Endometrium, Open Approach (ICD-10-PCS; 2021-12-21)
PROC: 0DBW0ZZ Excision of Peritoneum, Open Approach (ICD-10-PCS; 2021-12-21)
DX: N80.3 Endometriosis of pelvic peritoneum (principal); K43.0 Incisional hernia with obstruction, without gangrene; K42.0 Umbilical hernia with obstruction, without gangrene; N83.202 Unspecified ovarian cyst, left side; N83.201 Unspecified ovarian cyst, right side; F41.9 Anxiety disorder, unspecified; F32.A Depression, unspecified; Z88.0 Allergy status to penicillin; J44.9 Chronic obstructive pulmonary disease, unspecified; R31.9 Hematuria, unspecified
CPT/HCPCS: 81025; A9270-GY; C1713; C1781; C9113; J0171; J0330; J0690; J1100; J1170; J2020; J2185; J2405; J2704; J2710; J2795; J3010; J3411; J3420; J3490; J7121

== ENCOUNTER 2022-02-25 12:18 | Emergency (ER) | payer MEDICAID ==
[2022-02-25 12:39] VITALS: BP 137/73; PULSE 81
== END 2022-02-25 13:51 | disposition home or self-care (01) ==
LOC: JP.ED 12:18
DX: G44.209 Tension-type headache, unspecified, not intractable (principal); M54.2 Cervicalgia; Z88.0 Allergy status to penicillin; Z79.899 Other long term (current) drug therapy; Z86.16 Personal history of COVID-19; Z90.710 Acquired absence of both cervix and uterus
CPT/HCPCS: 99283

== ENCOUNTER 2023-08-25 09:47 | Emergency (ER) | payer MEDICAID ==
[2023-08-25 10:09] VITALS: BP 130/80; PULSE 83
[2023-08-25 10:10] LABS: APPEARANCE,URINE CLEAR (CLEAR); BILIRUBIN,URINE NEGATIVE (NEGATIVE); COLOR,URINE YELLOW (YELLOW); GLUCOSE,URINE 100 mg/dL (NEGATIVE); KETONES,URINE NEGATIVE (NEGATIVE); LEUKOCYTE ESTERASE,URINE MODERATE (NEGATIVE); NITRITE,URINE NEGATIVE (NEGATIVE); OCCULT BLOOD,URINE LARGE (NEGATIVE); PROTEIN,URINE NEGATIVE (NEGATIVE); UROBILINOGEN,URINE 0.2 EU/dL (0.2-1.0)
[2023-08-25 10:29] LABS: BACTERIA,URINE OCCASIONAL
[2023-08-25] MEDS ORDERED: Sodium Chloride 0.9% 1,000 ML IV SCH (10:45)
[2023-08-25 10:50] LABS: BASOPHILS ABSOLUTE AUTO 0.05 K/uL (0.00-0.10); BASOPHILS PERCENT AUTO 0.4 % (0.1-1.3); EOSINOPHILS ABSOLUTE AUTO 0.22 K/uL (0.00-0.40); EOSINOPHILS PERCENT AUTO 1.9 % (0.0-5.4); HEMATOCRIT 41.9 % (34.3-46.0); HEMOGLOBIN 14.4 g/dL (11.2-15.5); IMMATURE GRAN PERCENT AUTO 0.2 % (0.0-0.7); LYMPHOCYTES ABSOLUTE AUTO 2.26 K/uL (0.8-3.3); LYMPHOCYTES PERCENT AUTO 19.4 % (11.4-47.7); MEAN CORPUSCULAR HEMOGLOBIN 31.2 pg (31.6-35.5); MEAN CORPUSCULAR HGB CONC 34.4 g/dL (31.6-35.5); MEAN CORPUSCULAR VOLUME 90.7 fL (81.4-99.0); MONOCYTES ABSOLUTE AUTO 0.79 K/uL (0.20-0.90); MONOCYTES PERCENT AUTO 6.8 % (3.3-12.6); NEUTROPHILS ABSOLUTE AUTO 8.32 K/uL (1.0-7.6); NEUTROPHILS PERCENT AUTO 71.3 % (40.0-78.1); PLATELET COUNT,PLT 231 K/uL (130-375); RED BLOOD CELL COUNT 4.62 M/uL (3.77-5.24); WHITE BLOOD CELL COUNT,WBC 11.7 K/uL (3.2-11.0)
[2023-08-25 10:53] LABS: IMMATURE GRAN ABSOLUTE AUTO 0.02 K/uL (0.00-0.23)
[2023-08-25 11:10] LABS: A/G RATIO 1.1 (1.2-2.2); ALANINE AMINOTRANSFERASE,ALT 22 U/L (12-78); ALBUMIN 3.8 g/dL (3.4-5.0); ALKALINE PHOSPHATASE 51 U/L (46-116); ANION GAP 3.9 mmol/L (5.0-14.0); ASPARTATE AMNIOTRANSFERASE,AST 14 U/L (15-37); BILIRUBIN TOTAL 0.4 mg/dL (0.2-1.0); BLOOD UREA NITROGEN,BUN 15 mg/dL (7-18); CALCIUM 8.9 mg/dL (8.5-10.1); CARBON DIOXIDE,CO2 31 mmol/L (21-32); CHLORIDE,CL 105 mmol/L (100-108); CREATININE 1.1 mg/dL (0.6-1.0); EST CRCL DRUG DOSING (CG) 50.05 mL/min; ESTIMATED GFR 61 mL/min (>60); GLUCOSE RANDOM 88 mg/dL (74-106); POTASSIUM,K 4.3 mmol/L (3.6-5.2); PROTEIN TOTAL,TP 7.3 g/dL (6.4-8.2); SODIUM,NA 140 mmol/L (140-148)
[2023-08-25] MEDS ORDERED: Sodium Chloride 0.9% 10 ML Syringe FLUSH PRN (11:12)
[2023-08-25] MEDS ORDERED: Sodium Chloride 0.9% 100 ML IV SCH (11:15)
[2023-08-25] MEDS ORDERED: Iopamidol 612 MG/ML 100 ML Bottle IV SCH (11:15)
[2023-08-25] MEDS ORDERED: cefTRIAXone 2 GM in Sodium Chloride 0.9% 50 ML IV ONE (11:45)
[2023-08-25] MEDS ORDERED: Acetaminophen 325 MG Tab PO ONE (12:15)
[2023-08-25] MEDS ORDERED: Phenazopyridine 95 MG Tab PO SCH (13:00)
== END 2023-08-25 14:12 | disposition home or self-care (01) ==
LOC: JP.ED 09:47
DX: N39.0 Urinary tract infection, site not specified (principal); Z88.0 Allergy status to penicillin; Z79.899 Other long term (current) drug therapy; Z86.16 Personal history of COVID-19; Z90.710 Acquired absence of both cervix and uterus
CPT/HCPCS: 36415; 74177; 80053; 81001; 85025; 86140; 87086; 96361; 96365; 99283; 99284; A9270; J0696; J3490; J7030; Q9967

== ENCOUNTER 2024-09-08 09:28 | Inpatient (IN) | payer BC, MEDICAID ==
[2024-09-08 10:16] LABS: BASOPHILS ABSOLUTE AUTO 0.05 K/uL (0.00-0.10); BASOPHILS PERCENT AUTO 0.3 % (0.1-1.3); EOSINOPHILS ABSOLUTE AUTO 0.03 K/uL (0.00-0.40); EOSINOPHILS PERCENT AUTO 0.2 % (0.0-5.4); HEMATOCRIT 40.5 % (34.3-46.0); HEMOGLOBIN 14.4 g/dL (11.2-15.5); IMMATURE GRAN ABSOLUTE AUTO 0.07 K/uL (0.00-0.23); IMMATURE GRAN PERCENT AUTO 0.5 % (0.0-0.7); LYMPHOCYTES ABSOLUTE AUTO 1.77 K/uL (0.8-3.3); LYMPHOCYTES PERCENT AUTO 11.6 % (11.4-47.7); MEAN CORPUSCULAR HGB CONC 35.6 g/dL (31.6-35.5); MONOCYTES ABSOLUTE AUTO 1.26 K/uL (0.20-0.90); MONOCYTES PERCENT AUTO 8.2 % (3.3-12.6); NEUTROPHILS PERCENT AUTO 79.2 % (40.0-78.1); PLATELET COUNT,PLT 185 K/uL (130-375); WHITE BLOOD CELL COUNT,WBC 15.3 K/uL (3.2-11.0)
[2024-09-08 10:40] LABS: A/G RATIO 1.1 (1.2-2.2); ALANINE AMINOTRANSFERASE,ALT 15 U/L (12-78); ALBUMIN 3.9 g/dL (3.4-5.0); ALKALINE PHOSPHATASE 75 U/L (46-116); ASPARTATE AMNIOTRANSFERASE,AST 14 U/L (15-37); BILIRUBIN TOTAL 0.5 mg/dL (0.2-1.0); BLOOD UREA NITROGEN,BUN 13 mg/dL (7-18); CARBON DIOXIDE,CO2 28 mmol/L (21-32); CHLORIDE,CL 101 mmol/L (100-108); CREATININE 1.3 mg/dL (0.6-1.0); EST CRCL DRUG DOSING (CG) 40.96 mL/min; ESTIMATED GFR 49 mL/min (>60); GLUCOSE RANDOM 100 mg/dL (74-106); POTASSIUM,K 4.1 mmol/L (3.6-5.2); PROTEIN TOTAL,TP 7.5 g/dL (6.4-8.2); SODIUM,NA 138 mmol/L (140-148)
[2024-09-08 10:43] LABS: ANION GAP 13.1 mmol/L (5.0-14.0); TROPONIN I HIGH SENSITIVITY < 4.0 pg/mL (<=60.3)
[2024-09-08] MEDS: Ibuprofen 400 MG Tab PO ONE (11:50)
[2024-09-08] MEDS: Ondansetron 4 MG/2 ML SDV IVPUSH ONE (12:27)
[2024-09-08] MEDS: Sodium Chloride 0.9% 10 ML Syringe FLUSH PRN (12:39)
[2024-09-08] MEDS: Sodium Chloride 0.9% 80 ML IV ONE (12:39)
[2024-09-08] MEDS: Iopamidol 612 MG/ML 100 ML Bottle IV PRN (12:39)
[2024-09-08] MEDS ORDERED: Naloxone 0.4 MG/ML SDV IVPUSH PRN (13:57)
[2024-09-08] MEDS: HYDROmorphone 0.5 MG/0.5 ML Syringe IVPUSH ONE (14:25)
[2024-09-08] MEDS: Sodium Chloride 0.9% 1,000 ML IV ONE (14:25)
[2024-09-08 14:36] LABS: LACTIC ACID 0.6 mmol/L (0.4-2.0)
[2024-09-08] MEDS ORDERED: Levofloxacin/Dextrose 5%-Water 750 MG in Premix Bag 1 BAG IV ONE (14:38)
[2024-09-08] MEDS: metroNIDAZOLE/Normal Saline 500 MG in Premix Bag 1 BAG IV ONE (15:24)
[2024-09-08 15:33] LABS: BILIRUBIN,URINE NEGATIVE (NEGATIVE); COLOR,URINE YELLOW (YELLOW); GLUCOSE,URINE NEGATIVE (NEGATIVE); KETONES,URINE NEGATIVE (NEGATIVE); LEUKOCYTE ESTERASE,URINE NEGATIVE (NEGATIVE); NITRITE,URINE NEGATIVE (NEGATIVE); OCCULT BLOOD,URINE MODERATE (NEGATIVE); PROTEIN,URINE NEGATIVE (NEGATIVE); UROBILINOGEN,URINE 0.2 EU/dL (0.2-1.0)
[2024-09-08 16:36] LABS: AMORPHOUS SEDIMENT,URINE NOT SEEN; APPEARANCE,URINE SLIGHTLY CLOUDY (CLEAR); BACTERIA,URINE FEW; EPITHELIAL CELLS,URINE RARE; MUCUS,URINE NOT SEEN; RBC,URINE 30-40 (0-5); WBC,URINE 0-5 (0-5)
[2024-09-08] MEDS: VANCOmycin 1.25 GM in Sodium Chloride 0.9% 250 ML IV ONE (17:14)
[2024-09-08] MEDS ORDERED: Albuterol 0.083% 2.5 MG/3 ML Neb Soln NEB PRN (17:22)
[2024-09-08] MEDS ORDERED: Sodium Chloride 0.9% 10 ML Syringe FLUSH PRN (17:22)
[2024-09-08] MEDS ORDERED: Polyethylene Glycol 3350 Powder 17 GM Packet PO PRN (17:22)
[2024-09-08] MEDS ORDERED: Ondansetron 4 MG/2 ML SDV IV PRN (17:22)
[2024-09-08] MEDS ORDERED: VANCOmycin 1 GM SDV IV SCH (17:30)
[2024-09-08] MEDS: Levofloxacin/Dextrose 5%-Water 750 MG in Premix Bag 1 BAG IV SCH (19:23)
[2024-09-08] MEDS: oxyCODONE 5 MG Tab PO PRN (19:25)
[2024-09-08] MEDS: Sodium Chloride 0.9% 1,000 ML IV SCH (19:34)
[2024-09-08] MEDS: Acetaminophen 325 MG Tab PO PRN (19:47)
[2024-09-08] MEDS: Enoxaparin 40 MG/0.4 ML Syringe SUBCUT SCH (20:57)
[2024-09-08] MEDS: Melatonin 3 MG Tab PO SCH (22:00)
[2024-09-08] MEDS: ClonazePAM 1 MG Tab PO ONE (22:01)
[2024-09-08] MEDS: Benzocaine/Cetylpyridinium/Menthol Lozenge MUCMEM PRN (23:55)
[2024-09-09 05:57] LABS: HEMATOCRIT 36.7 % (34.3-46.0); HEMOGLOBIN 12.5 g/dL (11.2-15.5); MEAN CORPUSCULAR HEMOGLOBIN 31.6 pg (31.6-35.5); MEAN CORPUSCULAR HGB CONC 34.1 g/dL (31.6-35.5); MEAN CORPUSCULAR VOLUME 92.7 fL (81.4-99.0); RED BLOOD CELL COUNT 3.96 M/uL (3.77-5.24); WHITE BLOOD CELL COUNT,WBC 14.8 K/uL (3.2-11.0)
[2024-09-09 06:14] LABS: CALCIUM 8.6 mg/dL (8.5-10.1); CREATININE 1.1 mg/dL (0.6-1.0); EST CRCL DRUG DOSING (CG) 47.32 mL/min; MAGNESIUM 1.7 mg/dL (1.8-2.4); POTASSIUM,K 4.3 mmol/L (3.6-5.2)
[2024-09-09] MEDS: VANCOmycin 0.75 GM in Sodium Chloride 0.9% 250 ML IV SCH (08:55)
[2024-09-09] MEDS: Magnesium Oxide 400 MG Tab PO SCH (08:55)
[2024-09-09] MEDS: Magnesium Sulfate/Water Premix 2 GM in Premix Bag 1 BAG IV SCH (10:23)
[2024-09-09] MEDS: Iopamidol 612 MG/ML 100 ML Bottle IV ONE (12:04)
[2024-09-09] MEDS: Sodium Chloride 0.9% 100 ML IV ONE (12:04)
[2024-09-09] MEDS: Sodium Chloride 0.9% 10 ML Syringe FLUSH ONE (12:05)
[2024-09-09 12:43] LABS: STREP A BY PCR NOT DETECTED (NOT DETECT)
[2024-09-09 12:49] LABS: CORONAVIRUS COVID-19 NAA NEGATIVE (NEGATIVE)
[2024-09-09 12:51] LABS: INFLUENZA A NAA NEGATIVE (NEGATIVE); INFLUENZA B NAA NEGATIVE (NEGATIVE); RESPIRATORY SYNCYTIAL VIR NAA NEGATIVE (NEGATIVE)
[2024-09-09] MEDS: ClonazePAM 1 MG Tab PO SCH (13:15)
[2024-09-09] MEDS: Meropenem 2 GM in Sodium Chloride 0.9% 100 ML IV SCH (15:52)
[2024-09-09] MEDS: ClonazePAM 0.5 MG Tab PO PRN (20:06)
[2024-09-10] MEDS: Meropenem 2 GM in Sodium Chloride 0.9% 100 ML IV SCH (03:39)
[2024-09-10] MEDS: Iopamidol 612 MG/ML 100 ML Bottle IV SCH (05:50)
[2024-09-10] MEDS: Sodium Chloride 0.9% 10 ML Syringe FLUSH ONE (05:50)
[2024-09-10] MEDS: Sodium Chloride 0.9% 100 ML IV SCH (05:50)
[2024-09-10 06:12] LABS: HEMATOCRIT 32.6 % (34.3-46.0); HEMOGLOBIN 11.3 g/dL (11.2-15.5); MEAN CORPUSCULAR HEMOGLOBIN 31.7 pg (31.6-35.5); MEAN CORPUSCULAR HGB CONC 34.7 g/dL (31.6-35.5); MEAN CORPUSCULAR VOLUME 91.6 fL (81.4-99.0); RED BLOOD CELL COUNT 3.56 M/uL (3.77-5.24); WHITE BLOOD CELL COUNT,WBC 12.6 K/uL (3.2-11.0)
[2024-09-10 06:35] LABS: CALCIUM 8.4 mg/dL (8.5-10.1); CREATININE 1.1 mg/dL (0.6-1.0); EST CRCL DRUG DOSING (CG) 47.32 mL/min; MAGNESIUM 1.9 mg/dL (1.8-2.4); POTASSIUM,K 4.1 mmol/L (3.6-5.2); VANCOMYCIN RANDOM 14.4 ug/mL (0.0-50.0)
[2024-09-10 06:37] LABS: ANION GAP 12.1 mmol/L (5.0-14.0)
[2024-09-10] MEDS: VANCOmycin 1 GM in Sodium Chloride 0.9% 250 ML IV SCH (14:03)
[2024-09-11 06:03] LABS: HEMATOCRIT 34.7 % (34.3-46.0); MEAN CORPUSCULAR HEMOGLOBIN 31.5 pg (31.6-35.5); MEAN CORPUSCULAR HGB CONC 34.6 g/dL (31.6-35.5); MEAN CORPUSCULAR VOLUME 91.1 fL (81.4-99.0); RED BLOOD CELL COUNT 3.81 M/uL (3.77-5.24); WHITE BLOOD CELL COUNT,WBC 8.6 K/uL (3.2-11.0)
[2024-09-11 06:26] LABS: ANION GAP 5.6 mmol/L (5.0-14.0); CALCIUM 8.9 mg/dL (8.5-10.1); CREATININE 1.1 mg/dL (0.6-1.0); EST CRCL DRUG DOSING (CG) 47.32 mL/min; POTASSIUM,K 4.4 mmol/L (3.6-5.2)
[2024-09-12] MEDS: ClonazePAM 0.5 MG Tab PO SCH (10:17)
[2024-09-12] MEDS: LORazepam 1 MG Tab PO PRN (10:17)
[2024-09-13 11:01] VITALS: BP 104/67; PULSE 77
== END 2024-09-13 11:51 | disposition home or self-care (01) | DRG 720 ==
LOC: JP.ED 09:28 → JP.ICU 16:46
PROVIDERS: ADMIT Hospitalist; ATTEND Hospitalist
DX: A41.9 Sepsis, unspecified organism (principal); I50.9 Heart failure, unspecified; G43.909 Migraine, unspecified, not intractable, without status migrainosus; F32.A Depression, unspecified; F03.94 Unspecified dementia, unspecified severity, with anxiety; F41.9 Anxiety disorder, unspecified; F03.918 Unspecified dementia, unspecified severity, with other behavioral disturbance; H54.7 Unspecified visual loss; I08.9 Rheumatic multiple valve disease, unspecified; Z79.899 Other long term (current) drug therapy; Z88.0 Allergy status to penicillin; Z98.890 Other specified postprocedural states; Z90.710 Acquired absence of both cervix and uterus; Z72.0 Tobacco use; Z85.528 Personal history of other malignant neoplasm of kidney; Z90.49 Acquired absence of other specified parts of digestive tract
CPT/HCPCS: 0241U; 36415; 70491; 70491-26; 71045; 71045-26; 71046; 71046-26; 71260; 71260-26; 74177; 74177-26; 80048; 80053; 80202; 81001; 83605; 83735; 84145; 84484; 85025; 85027; 85379; 86140; 87040; 87086; 87428-QW; 87651-QW; 93005; 96365; 96375; 99222; 99231; 99232; 99238; 99285-25; A9270-GY; J1650; J1836; J1956; J2185; J2405; J3371; J3475; J7030; J7040; J7050; Q9967